=== PATIENT | male | born 1980 | race Two or more races ===

== ENCOUNTER 2024-07-14 11:04 | Outpatient (AMB) | payer MEDICAID, SELFPAY ==
--- NOTE | 2024-07-14 10:53 | PD.ORTHTELE ---
Med/Allergies Allergies & Medications Allergies No Known Drug Allergies Allergy (Verified 07/14/24 10:54) Medication Reconciliation No Known Home Medications 05/15/24 [History Confirmed 07/14/24] Subjective Visit Visit for: follow up visit, knee and x-rays Immunization / Flu Flu Vaccine in the Last 12 Months: No Flu Vaccine Exclusion Criteria: No Exclusion Criteria History of Present Illness Chief complaint: F/U XRAYS Al is a pleasant 44-year-old male who had a history of a right total hip replacement 18 months ago through a lateral approach. He reports the pain has improved on the right side but has significant left hip pain. We previously tried to get surgery. He had a baby recently and this delayed his surgery substantially. He has failed conservative treatment including formal physical therapy and anti-inflammatories. We looked at his x-rays from [facility] ( [facility] recent. The right total hip has a cementless total hip replacement good alignment position. His left hip has significant arthritis and avascular necrosis.There is complete collapse of the joint space and significant acetabular wear Pain Pain level (0-10): 8 Pain duration: COMES AND GOES Pain location: inside (medial), outside (lateral), anterior and posterior Pain quality: sharp, dull and aching Pain timing: increases with activity Associated signs & symptoms: numbness and weakness Ambulatory data Ambulatory device: none Treatments Improvement with previous injections: No Improvement with PT: No Improvement with NSAIDS: n/a Review of Systems Review of Systems: All systems negative unless otherwise noted in HPI. 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 His left hip is bothering him quite significantly. We thus discussed total hip replacement is a reasonable option. He does have a history of drug abuse but is not active. We will currently order A repeat drug screen and plan to proceed with total hip replacement. There is severe destruction and we will get a CT to assess the wear. This will be performed through a lateral approach as it is a complex total hip replacement The nature and purpose of the total hip replacement, alternative method(s) of treatment, the material risks involved, and the possibility of complications were fully explained to the patient. The patient does NOT have any of the following contraindications to KANDI: - Active infection of the hip joint, OR - Active systemic bacteremia, OR - Active skin infection or open wound at surgical site, OR - Neuropathic arthritis, OR - Severe, rapidly progressive neurological disease, OR - Severe medical condition that makes risks of the surgery outweigh the potential benefit The patient was told the most common risks and complications associated with a total hip replacement include, but are not limited to: blood clots in the leg, fatal pulmonary embolism, dislocation of the prosthesis, intraoperative and postoperative fractures of the femur or acetabulum, infection, failure of the prosthesis or grafting materials, complications from anesthesia, reactions to blood transfusions, postoperative leg length inequality, instability of the hip replacement, nerve damage or injury, vascular injury, delayed wound healing, infection, other injury or even . In addition, there are risks associated with anesthesia given during this operation. Also, the patient was told that after undergoing a total hip replacement there may still be persistent pain or disability. The patient was informed that the success of this operation in part depends upon the mechanical devices which are going to be implanted and that these devices can fail or malfunction, and may need to be repaired or replaced and there are no guarantees as to the longevity of this device or its parts and that it or its parts could fail prematurely. The patient was also notified that during the course of surgery, there may be a need to use bone graft from donors, and that any bone graft used will be carefully screened for communicable diseases, including AIDS, hepatitis, Brad-Creutzfeldt, or other diseases, but despite the screening procedures, there is a small chance that they could contract one of these diseases. Finally, the patient was asked to follow completely and fully with all advice and recommended treatments, and that recovery and ultimate outcome are affected by their compliance with recommended treatment. We discussed the risks, benefits and treatment alternatives, and the patient is interested in proceeding with surgery. We will try to set this up as expeditiously as possible. Office Procedures GNS Level of Care Nursing/Assessment Patient Status: Established Patient Nursing Assessment/Reassesment: Medication Reconciliation, Update PMH in EMR and Vital Signs Coordination of Care: Complex Care and Chronic Disease 1-5, Education Complex Pt/Fam, Consent,records obtained, informed consent, Results/Orders obtained and Staff clarify orders Established Patient Charge Established Patient Point Assignment: 95 Telehealth Telemed Phone/Video with patient at home & ,PA,VARNISH DIPPER: Yes (TELEMED VISIT )
== END 2024-07-14 11:05 | disposition home or self-care (01) ==
LOC: HODSRG 11:04
PROVIDERS: PCP Student in an Organized Health Care Education/Training Program; Referring Provider Student in an Organized Health Care Education/Training Program; Supervising Provider Orthopaedic Surgery Adult Reconstructive Orthopaedic Surgery; Visit Provider Orthopaedic Surgery Adult Reconstructive Orthopaedic Surgery
DX: M87.88 Other osteonecrosis, other site (principal); Z96.641 Presence of right artificial hip joint
CPT/HCPCS: 99212; G0463

== ENCOUNTER → 2024-08-14 | Outpatient (CLI) | payer MEDICAID, SELFPAY ==
--- NOTE | 2024-08-14 10:06 | XR_ITS ---
Examination: CT bilateral lower extremities, without contrast. 2-D sagittal reconstructions. 2-D coronal reconstructions. 3-D reconstructions. Date and time of exam:August 14, 2024 10:18 AM INDICATIONS: Chronic left hip pain left hip osteoarthritis several years CTDI: vol (mGy):15.2 DLP: (mGycm):571 Technique: Multiple 1.25 mm axial sections of the bilateral lower extremities without intravenous contrast have been obtained. 2-D sagittal and coronal reconstructions have been obtained. 3-D reconstructions have been obtained. Low dose protocols were performed. One or more of the following dose reduction techniques were used; automated exposure control, adjustment of the mA and/or KV according to patient size, use of iterative reconstruction technique. Findings: Moderate osteopenia Total right hip arthroplasty with satisfactory alignment, no loosening of the prosthetic components Advanced left hip osteoarthritis with fragmentation, extensive of the left femoral head consistent with avascular necrosis Moderate narrowing medial joint space left knee Mild narrowing medial joint space right knee No fracture or dislocation involving either knee Bilateral mild to moderate narrowing lateral patellofemoral joints IMPRESSION: Advanced left hip osteoarthritis with avascular necrosis left femoral head
== END | disposition home or self-care (01) ==
LOC: CCTX 07:49 → SCAT 08:58 → CCTX 10:02
PROVIDERS: PCP Family Medicine; Referring Provider Orthopaedic Surgery Adult Reconstructive Orthopaedic Surgery; Visit Provider Orthopaedic Surgery Adult Reconstructive Orthopaedic Surgery
DX: M16.12 Unilateral primary osteoarthritis, left hip (principal); M87.852 Other osteonecrosis, left femur
CPT/HCPCS: 73700

== ENCOUNTER 2024-09-10 14:45 | Outpatient (AMB) | payer MEDICAID, SELFPAY ==
--- NOTE | 2024-09-10 14:56 | ORTHONT_ITS ---
Vital signs 09/10/24 14:58 Height 1.68 m Height Method Stated Weight 65.516 kg Weight Measurement Method Standing Scale BMI 23.2 BP 121/84 Blood Pressure Source Automatic Cuff Blood Pressure Location Left Upper Arm Position Sitting Respiration 18 Pulse 104 H Pulse Source Monitor Temp 97.9 F Temp Source Temporal Artery Scan Pulse Oximetry (%) 97 Oxygen Delivery Method Room Air Med/Allergies Allergies & Medications Allergies No Known Drug Allergies Allergy (Verified 09/10/24 14:58) Medication Reconciliation No Known Home Medications 05/15/24 [History Confirmed 09/10/24] Exam Exam Patient is in no acute distress and is cooperative with the examination today. Breathing is nonlabored. In no respiratory distress. Patient has no paraspinal tenderness. Spinal deformity [cannot] be appreciated. The gait of the patient is [nonantalgic] Bilateral extremities were evaluated and demonstrates sensation intact to light touch. Palpable pedal pulses are present. No significant edema is present. Bilateral knees were examined and the patient has full strength and range of motion.. The right hip was examined. Patient was able to flex to 90 degrees, adduct to 30 degrees, abduct to 40 degrees, internally rotate to 20 degrees, and externally rotate to 20 degrees. Patient has a negative logroll. Stinchfield is negative. T he patient is nontender diffusely to touch. The left hip was examined. Patient was able to flex to [90] degrees, adduct to [30] degrees, abduct to [40] degrees, internally rotate to 0 ] degrees, and e xternally rotate to [20] degrees. Patient has a positive logroll and is 2 cm short on the left. New x-rays were reviewed from [facility]. This demonstrates a right cementless total hip replacement going position. The left hip demonstrates significant collapse of the left femoral head with shortening. There is significant cysts and asphericity of the femoral head Assessment and Plan Problem List (1) Avascular necrosis of bone of left hip: Status: Acute Plan: Patient is a pleasant 43-year-old male with left hip pain and left hip avascular NECROSIS. He has done well from his right total hip replacement. I will obtain new x-rays to see the current state of his both his right and left hip. We will likely discuss left total hip replacement in great detail once we get the new x-rays. He is failed conservative treatment already. He reports that he is ready to get his left hip replaced Office Procedures GNS Level of Care Nursing/Assessment Patient Status: Established Patient Nursing Assessment/Reassesment: Medication Reconciliation, Update PMH in EMR and Vital Signs Coordination of Care: Complex Care and Chronic Disease 1-5, Education Complex Pt/Fam, Consent,records obtained, informed consent and Staff clarify orders Established Patient Charge Established Patient Point Assignment: 90 Established Patient Point Charge: EP Level 3 (80-115) MA Intake Visit Data Collection New Patient or Established: Established Patient (seen at [facility] within 3 years) Reason for Visit:: PRE OP Seen by Clinical Staff ONLY (RN/MA): No Court Reporter Required: No PCP or OBGYN visit in last 3 months: Yes Hx Now: No Do You Feel Safe at Home: Yes Authorities Contacted: N/A Questionairres Past Medical History Past Medical History Have you ever been diagnosed with any of the following: Respiratory Problems Smoking: Yes (MARIJUANA) Smoking Cessation Counseling: No Smoking Exposure: Yes Tobacco Use: No Surgical History Total Hip Replacement: Yes Subjective Visit Visit for: follow up visit and hip Immunization / Flu Flu Vaccine in the Last 12 Months: No Flu Vaccine Exclusion Criteria: No Exclusion Criteria History of Present Illness Chief complaint: LEFT HIP PAIN Pain Pain level (0-10): 8 Pain duration: ALL DAY Pain location: groin Pain quality: aching Pain timing: night, increases with activity and stairs Associated signs & symptoms: weakness Ambulatory data Ambulatory device: none Treatments Improvement with previous injections: No Improvement with PT: No Improvement with NSAIDS: no Review of Systems Review of Systems: All systems negative unless otherwise noted in HPI.
[2024-09-10 14:58] VITALS: BP 121/84; PULSE 104; RESP 18; TEMP 36.6; O2SAT 97; BMI 23.2
== END 2024-09-10 15:16 | disposition home or self-care (01) ==
LOC: HODSRG 14:45
PROVIDERS: PCP Family Medicine; Referring Provider Family Medicine; Supervising Provider Orthopaedic Surgery Adult Reconstructive Orthopaedic Surgery; Visit Provider Orthopaedic Surgery Adult Reconstructive Orthopaedic Surgery
DX: M87.88 Other osteonecrosis, other site (principal); M25.552 Pain in left hip; Z96.641 Presence of right artificial hip joint
CPT/HCPCS: 99213; G0463

== ENCOUNTER 2024-09-23 09:35 | Day surgery (SDC) | payer MEDICAID, SELFPAY ==
[2024-09-22 09:18] VITALS: BMI 24.0
[2024-09-22 10:01] LABS: Basophils # (Auto) 0.1 Thou/mm3 (0.0-0.2); Basophils % (Auto) 1 % (0-2.5); Eosinophils # (Auto) 0.1 Thou/mm3 (0.0-0.5); Eosinophils % (Auto) 1 % (0-10); Hematocrit 45.9 % (41.0-53.0); Hemoglobin 15.5 g/dL (13.5-16.0); Immature Granulocytes % (Auto) 0 % (0-0); Immature Granulocytes Auto 0.03 Thou/mm3 (0.00-0.00); Lymphocytes % (Auto) 40 % (10-50); Mean Corpuscular HGB Conc 33.8 g/dl (31.0-37.0); Mean Corpuscular Hemoglobin 30.5 pg (25.0-35.0); Mean Corpuscular Volume 90 fL (80-100); Monocytes # (Auto) 0.8 Thou/mm3 (0.0-0.8); Monocytes % (Auto) 11 % (0-12); Neutrophils # (Auto) 3.4 Thou/mm3 (1.8-7.7); Neutrophils % (Auto) 46 % (37-80); Nucleated Red Blood Cell % 0 /100 WBC (0); Platelet Count 290 Thou/mm3 (140-440); RDW Standard Deviation 46.2 fL (35.1-43.9); Red Blood Count 5.09 Miln/mm3 (4.50-5.90); White Blood Count 7.4 Thou/mm3 (3.8-10.6)
[2024-09-22 10:08] LABS: Partial Thromboplastin Time 27.3 Seconds (22.0-36.0); Prothrombin Time 11.4 Seconds (9.0-12.2)
[2024-09-22 10:12] LABS: Anion Gap 7 (7-16); BUN/Creatinine Ratio 9 Ratio (12-20); Blood Urea Nitrogen 9 mg/dL (9-23); Calcium 10.1 mg/dL (8.3-10.6); Carbon Dioxide 28.8 mMol/L (20.0-31.0); Chloride 101 mMol/L (98-107); Estimated Creatinine Clearance 86.8 mL/min (>60); Glucose 95 mg/dL (74-106); Osmolality,Calculated 272 (275-295); Potassium 4.4 mMol/L (3.4-5.1); Sodium 137 mMol/L (136-145); eGFR > 60 See Note
[2024-09-23] VITALS (11 sets, daily range): BP systolic 115–149; BP diastolic 79–101; PULSE 50–80; RESP 12–20; TEMP 36.1–36.6; O2SAT 97–100; BMI 23.3; BMI 23.5
[2024-09-23] MEDS: ACETAMINOPHEN 325 MG TABLET 650 MG PO (10:16)
[2024-09-23] MEDS: PREGABALIN 75 MG CAPSULE PO (10:17)
[2024-09-23] MEDS: MELOXICAM 7.5 MG TABLET PO (10:17)
[2024-09-23] MEDS: RINGERS LACTATED 1000 ML 1,000 ML 20 ML IV (10:18)
--- NOTE | 2024-09-23 13:13 | XR_ITS ---
Examination: Left hip 2 views Technique: AP left hip 2 views Exam date and time: September 23, 2024 1420 hrs. Indications: Total left hip arthroplasty Findings: Total left hip arthroplasty. Satisfactory alignment No fracture Impression: Total left hip arthroplasty with satisfactory alignment
--- NOTE | 2024-09-23 15:07 | XR_ITS ---
Examination:Left hip AP, lateral, AP pelvis 3 views Technique: Hip AP lateral, AP pelvis, 3 views Exam date and time:September 23, 2024 1533 hrs. Indications: Status post left hip replacement Findings: Total left hip arthroplasty Satisfactory alignment No fracture Total right hip arthroplasty with satisfactory alignment Bones of the pelvis intact Impression: Total left hip arthroplasty with satisfactory alignment.
--- NOTE | 2024-09-23 15:10 | ESOP_ITS ---
Date of Procedure 09/23/24 Pre Op Diagnosis left hip avascular necrosis Post Op Diagnosis left hip avascular necrosis Procedure left hip avascular necrosis Findings avn, collapsed femoral head Procedure Description Indications: The patient is a 44y.o. year-old with a longstanding history of left hip pain. After considering the patient's condition and the impact of their hip injury on the patient's quality of life and risks of nonoperative treatment, total hip replacement was offered as a reasonable option. Prior to the surgery I discussed the nature of the hip replacement surgery including alternatives to surgery and the purpose of, and indications for proceeding with surgery. I discussed that this surgery is a shared decision b etween the patient and the surgeon. Risks and benefits and alternatives of the procedure have been explained to the patient and their family. Anesthesia complications and risks include but are not limited to stroke, heart attack, and . The surgical risks include but are not limited to infection, instability/dislocation, bleeding, nerve and blood vessel injury, deep vein thrombosis, pulmonary embolus, stiffness, pain, scar, need for reoperation, leg length discrepancy, thigh numbness, weakness, and mechanical failure of the implant including loosening, metal complications, metal allergy, wear or breakage. I discussed the expected recovery from surgery and the importance of compliance with all our pre and post-operative recommendations in order to maximize the recovery. The patient/family understands the risks of loss of life, loss of limb and, loss of function and wishes to proceed. They understand they are at increased risk for infection given their history of smoking. A signed and witnessed consent was obtained and placed in the chart. Patient Positioning: The patient was placed in the lateral decubitus position on a standard table using a pegboard. An axillary role was placed. All extremities were padded to ensure adequate protection. A robbins catheter was aseptically inserted. Time Out: A timeout was performed prior to the procedure which verified the correct p atient, positioning, operation to be performed, operative site, antibiotics, allergies, imaging, and any other concerns. All parties were in agreement. Procedure in detail: The operative site was cleaned and draped in the usual sterile fashion. A final timeout was performed with all parties in agreement. We first placed pins iabove the ASIS and attached the array for the pelvis. A modified anterolateral approach to the hip was utilized. A 16cm skin incision was made centered over the greater trochanter in line with the femur. This was taken down through skin and subcutaneous tissue using a 10 blade. Bleeding was controlled using electrocautery. The fascia was identified and split in line with the femur. The charnley retractor was then placed. The abductor insertion was identified and a split made in the anterior 1/3 of the tendon proximally. Retractors were placed and the gluteus minimus was visualized. A capsulotomy was made down to the femoral neck anterior to the minimus. A split was then made in the anterior 1/3 of the vastus lateralis. A retractor was then placed anterior to the femoral shaft, the tendon was tagged with #1 ethibond sutures and a U-shaped split was made in the anterior 1/3 of the abductor tendon being careful to leave enough tendon to re-attach. The hip was then gently externally rotated as the anterior tissues were taken down with the tendon and capsule as one sleeve. Once the anterior tissue had been release off of bone a bone hook was placed and the hip was gently dislocated. Retractors were placed around the femoral neck and the femoral neck osteotomy was then made to freshen up the cut. The femoral head removed. The leg was then placed in extension and retractors were placed anterior and posterior to the acetabulum. The inferior capsule was release to improved visualization and the labrum and osteophytes around the acetabulum were removed. The acetabulum was then reamed to bleeding bone with adequate wall coverage with a robot and the cup was impacted into place. Screws were then placed followed by the liner which was impacted and confirmed to be seated. We then turned our attention to the femur. The leg was brought into external rotation and the femur was exposed. A canal finder was used followed by a box osteotomy and the femur was broached sequentially. The trial stem was then left in and the hip was trialed using various neck offsets and head sizes until the appropriate size was found based on leg length, stability. Once we were satisfied with the construct a cross-table AP pelvis radiograph was obtained to confirm appropriate positioning and sizing. The hip was then dislocated and the trials were then removed and the final stem impacted into placed. The hip was then again trialed and the appropriate head size identified. The aiken taper was then cleaned and dried and the final head impact into place and tested. The acetabulum was irrigated and confirmed to be free of debris. The hip was then reduced and taken through range of motion. The hip was stable in abduction and external rotation, adduction and external rotation, flexion past 90 degrees and internal rotation past 20 degrees. It did not sublux throughout range of motion and no impingement was detected. Leg lengths were appropriately restored based on preoperative leg lengths and intraoperative testing. . The hip was then copiously irrigated with dilute betadine followed by normal saline. The hip was then injected with the cocktail per protocol The hip was the closed in layers. The abductor tendon was closed with #1 ethibond. The fascia w as closed with 0 Vicryl followed by an 0 V-lock. . The deep layer was closed with 0-Vicryl and the subcutaneous layer by a 2-0 Vicryl. The subdermal layer was closed with a 3-0 monocryl. The skin was then cleaned and dried and steri- strips placed followed by a sterile dressing. The drapes were then taken down and the patient was placed supine. Leg lengths were confirmed to be appropriate and the patient's lower extremities were warm and well perfused with brisk capillary refill and palpable pulses. The patient was then awoken, transferred to the [facility] and taken to the PACU in stable condition. They tolerated the procedure well. The patient's family/caregiviers were made aware of their condition. Postoperative plan Activity: WBAT, no hip precautions , no active hip abduction DVT Prophylaxis: aspirin 81mg BID Antibiotics: Standard postoperative antibiotics x 24 hours Implants: [place] 54 cup, 5 standard insignia, 1 screw, standard liner, 40-2.5 head Anesthesia GETA Implants jluis Pathology / specimen None Pathology comment: none Estimated Blood Loss 150 Disposition observation Surgeon Rodrigo Reis MD Surgical Staff Operation Date: 09/23/24 13:30 Case Staff CHEMIST INTERN: Mitchell Waldrop RNvideo game repair technician: Ricarda Cook
--- NOTE | 2024-09-23 15:20 | SUR.PHASEI ---
1520 Patient arrived to recovery resting comfortably in bed, drowsy and talking with staff, breathing unlabored, vital signs stable, denies pain, dressing intact to left hip; prineo, telchayo, abd, medipore tape, no bleeding noted, patient denies nausea, post spinal anesthesia assessment via ice- patient has dermatome sensation at L1-groin, will monitor, bilateral dorsalis pedis pulses present when palpated, patient has good circulation to left lower extremity; skin color normal for patient and warm to touch, lung sounds clear upon auscultation, report received from Antonio PARKER and Mitchell GUTIERREZ
--- NOTE | 2024-09-23 16:03 | SUR.PHASEII ---
[id number] Patients friend Anthony notified patient out of surgery doing well, all questions answered
--- NOTE | 2024-09-23 16:05 | SUR.PHASEII ---
[id number] patient Mimi called, no answer, voicemail left.
--- NOTE | 2024-09-23 16:15 | SUR.PHASEII ---
1615 XRAY completed per MD order
--- NOTE | 2024-09-23 16:50 | SUR.PHASEII ---
1650 Dr. Reis notified patient heart rate in the 50's and dropped to 48, no new order, will continue to monitor, patient is awake and talking with staff, drinking fluids
--- NOTE | 2024-09-23 17:05 | SUR.PHASEII ---
1654 Report given to Lauren Denney RN, patient meets discharge criteria from recovery, awake and alert, breathing unlabored, vital signs stable, denies pain, dressing intact; no bleeding noted, post spinal anesthesia assessment, patient has dermatome sensation at the patella, patient drinking fluids tolerating well, denies nausea. 1702 Patient transported via bed to room 376 without incident. 1705 Patient notified patient room assigned and that she could spend the night with patient if she would like, states she would be one her way to the hospital
[2024-09-23] MEDS: ACETAMINOPHEN 500 MG TABLET 1000 MG PO (18:05)
[2024-09-23] MEDS: ASPIRIN EC 81 MG TABEC PO (20:06)
[2024-09-23] MEDS: oxyCODONE HCL 5 MG IR TAB 10 MG PO (23:21)
[2024-09-24] VITALS: BP 111/68; PULSE 60; RESP 19; TEMP 36.2; O2SAT 96
[2024-09-24] MEDS: ACETAMINOPHEN 500 MG TABLET 1000 MG PO ×2 (00:45→05:55)
[2024-09-24 04:00] VITALS: BP 119/77; PULSE 68; RESP 16; TEMP 36.8; O2SAT 98
[2024-09-24 08:00] VITALS: BP 122/81; PULSE 74; RESP 18; TEMP 37.1; O2SAT 97
[2024-09-24] MEDS: PANTOPRAZOLE INJ 40 MG VIAL IV (08:59)
[2024-09-24] MEDS: ASPIRIN EC 81 MG TABEC PO (09:00)
[2024-09-24] MEDS: oxyCODONE HCL 5 MG IR TAB PO (09:00)
== END 2024-09-24 11:12 | disposition home or self-care (01) ==
LOC: S2EX 15:08 → S3SX 09-24 07:12
PROVIDERS: PCP Family Medicine; Referring Provider Orthopaedic Surgery Adult Reconstructive Orthopaedic Surgery; Visit Provider Orthopaedic Surgery Adult Reconstructive Orthopaedic Surgery
PROC: (CPT 27130; principal; 2024-09-23 13:30)
DX: M87.052 Idiopathic aseptic necrosis of left femur (principal); M16.12 Unilateral primary osteoarthritis, left hip; Z87.891 Personal history of nicotine dependence
CPT/HCPCS: 27130; 36415; 73501; 73502; 80048; 85025; 85610; 85730; 87081; 97161; A4217; A4649; C1713; C1776; J0131; J1100; J2250; J2371; J2405; J2470; J2704; J3010; J3490; J7030; J7120; J7999; A9270